=== PATIENT | female | born 1995 | race Caucasian/White ===

== ENCOUNTER → 2016-05-09 | Outpatient (CLI) | payer OTHER ==
--- NOTE | 2016-05-09 13:25 | KCIC ---
PROCEDURE MR of the left knee HISTORY Lateral knee injury with continued pain. ACL reconstruction 2010. COMPARISON None TECHNIQUE Standard noncontrast images are obtained. FINDINGS There is mild vertical T2 signal at the posterior capsular margin of the medial meniscus, sagittal series 7, images 17 through 19. Findings are suspicious for a meniscocapsular separation or peripheral tear. Medial meniscus otherwise intact. Small radial tear at the body segment of the lateral meniscus. Anterior cruciate ligament reconstruction is intact. Posterior cruciate ligament is intact. Medial collateral ligament intact. Iliotibial band unremarkable. Fibular collateral ligament, biceps femoris tendon and popliteus tendon are intact. Extensor mechanism is intact. Moderate joint effusion. No evidence of osteochondral loose body. Mildly depressed subchondral fracture of the central weight-bearing lateral femoral condyle with acute subjacent bone marrow edema. Subchondral marrow contusion at the posterior lateral tibial plateau. Note this combination of injuries is compatible with a pivot-shift mechanism but again, the ACL reconstruction is intact, but this could indicate laxity. Medial compartment cartilage and patellofemoral cartilage intact. No acute soft tissue injury. IMPRESSION 1. Vertical T2 signal at the posterior medial meniscocapsular junction, suggesting separation or peripheral tear. 2. Small radial tear of the lateral meniscus. 3. Pivot-shift type bone injuries at the lateral compartment including a mildly depressed subchondral fracture of the central weight-bearing lateral femoral condyle. Findings could indicate anterior cruciate ligament reconstruction laxity, but there is no evidence of rupture of the graft. Electronically signed by: Brian Joya MD (May 09, 2016 13:24:22)
== END | disposition home or self-care (01) ==
LOC: KCIC MRI 09:30
PROVIDERS: ATTEND Orthopaedic Surgery
DX: S83.282A Other tear of lateral meniscus, current injury, left knee, initial encounter (principal); M25.462 Effusion, left knee; S82.002A Unspecified fracture of left patella, initial encounter for closed fracture; X58.XXXA Exposure to other specified factors, initial encounter; Y93.89 Activity, other specified; Y92.89 Other specified places as the place of occurrence of the external cause; Y99.8 Other external cause status
CPT/HCPCS: 73721